=== PATIENT | male | born 1955 | race Caucasian/White ===

== ENCOUNTER 2024-03-03 13:07 | Emergency (ER) | payer OTHER ==
[~2024-03-03] VITALS: Ht 182.9 cm; Wt 81.6 kg
[2024-03-03 13:42] VITALS: BP 130/70; PULSE 46; PULSE 67; RESP 20; TEMP 97.9; O2SAT 98
[2024-03-03 13:47] VITALS: BP 140/72; PULSE 70; RESP 20; TEMP 98
[2024-03-03 14:00] VITALS: O2SAT 98
== END 2024-03-03 14:41 | disposition home or self-care (01) ==
LOC: MED 13:07
DX: R21 Rash and other nonspecific skin eruption (principal); R03.0 Elevated blood-pressure reading, without diagnosis of hypertension; E11.22 Type 2 diabetes mellitus with diabetic chronic kidney disease; N18.6 End stage renal disease; Z99.2 Dependence on renal dialysis; Z85.118 Personal history of other malignant neoplasm of bronchus and lung; Z85.528 Personal history of other malignant neoplasm of kidney
CPT/HCPCS: 99283

== ENCOUNTER 2024-03-19 17:33 | Emergency (ER) | payer MEDICARE, OTHER ==
[~2024-03-19] VITALS: Ht 175.3 cm; Wt 77.1 kg
--- NOTE | 2024-03-19 17:34 | NUR ---
BIBA BLS TO ER BED 12
[2024-03-19 17:35] VITALS: BP 135/77; PULSE 56; RESP 18; TEMP 98.1; O2SAT 92
--- NOTE | 2024-03-19 18:16 | NUR ---
PATIENT BIBA BLS FOR HD . PT STATES HE IS COVID + . DENIES N/V/D; SKIN IS PINK/WARM/DRY; AAOX4 ABLE TO AMB WITH ASSIST; LUNGS WHEEZE UPPER LOBES BL; HR EVEN AND REGULAR; PT DENIES ANY FEVER, CP, SOB, AT THIS TIME; PATIENT STATES PAIN OF 0/10 AT THIS TIME; VSS; PATIENT POSITIONED FOR COMFORT; HOB ELEVATED; BEDRAILS UP X2; BED DOWN. ER MD MADE AWARE OF PT STATUS.
[2024-03-19 18:53] LABS: FLU A ANTIGEN negative (NEGATIVE); FLU B ANTIGEN negative (NEGATIVE)
--- NOTE | 2024-03-19 19:00 | NUR ---
PT REFUSING TO HAVE IV PLACED, REFUSING EKG, YELLING HE "WANTS TO HAVE HIS DAMN DIALYSIS AND THATS IT". NOTIFIED
[2024-03-19 19:26] VITALS: O2SAT 97
--- NOTE | 2024-03-19 19:26 | NUR ---
RECEIVED REPORT FROM ALEYDA CORONA. CONTINUE PLAN OFC ARE AT THIS TIME.
--- NOTE | 2024-03-19 19:26 | NUR ---
Pt report given to LUIS GARCIA. Transfer of care at this time.
--- NOTE | 2024-03-19 19:26 | NUR ---
68YO M BIB SELF C.O MISSED DIALYSIS. PER PT FACILITY BILLAIR SANTILLAN, PT MISSED DIALYSIS SUNDAY AND TODAY DUE TO DX OF COVID-19. PT COVID-19 POSITIVE ACCORDING TO [facility] TEST WELL. VSS ON BEDSIDE MONITOR. DENIES ANY OTHER S.S AND DENIES PAIN AT THS TIME. DENIES CP OR SOB. CALL LIGHT WITHIN REACH. SAFETY MEASURES IN PLACE. ALLERGIES: NSAIDS PMHX: HF, RF, A-FIB
--- NOTE | 2024-03-19 19:27 | NUR ---
PT REFUSES LABS
[2024-03-19 19:46] LABS: BASOPHILS # (AUTO) 0.1 K/uL (0.00-0.22); BASOPHILS % (AUTO) 1.1 % (0.0-2.0); EOSINOPHILS # (AUTO) 0.4 K/uL (0-0.4); EOSINOPHILS % (AUTO) 5.6 % (0.0-4.0); HEMATOCRIT 36.5 % (36-52); HEMOGLOBIN 11.8 g/dL (12.0-18.0); LYMPHOCYTES # (AUTO) 0.6 K/uL (2.0-11.5); LYMPHOCYTES % (AUTO) 9.5 % (20.5-51.1); MEAN CORPUSCULAR HEMOGLOBIN 31 pg (27-31); MEAN CORPUSCULAR HGB CONC 32 g/dL (33-37); MEAN CORPUSCULAR VOLUME 95.4 fL (80-94); MONOCYTES # (AUTO) 0.7 K/uL (0.8-1.0); MONOCYTES % (AUTO) 11.3 % (1.7-9.3); NEUTROPHILS # (AUTO) 4.7 K/uL (1.8-7.7); NEUTROPHILS % (AUTO) 72.5 % (42.2-75.2); PLATELET COUNT (AUTO) 255 K/uL (140-450); RED BLOOD CELL COUNT(AUTO) 3.82 MIL/uL (4.20-6.10); RED CELL DISTRIBUTION WIDTH 15.6 % (11.6-13.7); WHITE BLOOD COUNT (AUTO) 6.5 K/uL (4.8-10.8)
[2024-03-19 19:58] LABS: ANION GAP 21.6 (8-16); CARBON DIOXIDE 20.3 mmol/L (21-32); POTASSIUM 4.9 mmol/L (3.5-5.1)
[2024-03-19 19:59] LABS: CREATININE 9.9 mg/dL (0.6-1.3)
[2024-03-19 20:00] LABS: PARTIAL THROMBOPLASTIN TIME 47.2 secs (22-35.6); PROTHROMBIN TIME 38.2 secs (10.8-13.4)
[2024-03-19 20:02] LABS: INR 3.93 (0.8-1.2)
[2024-03-19 20:06] LABS: ALANINE AMINOTRANSFERASE 28 U/L (12-78); ALBUMIN 2.7 g/dL (3.4-5.0); ALKALINE PHOSPHATASE 265 U/L (50-136); ASPARTATE AMINOTRANSFERASE 33 U/L (15-37); BILIRUBIN,DIRECT 0.2 mg/dL (0.0-0.3); TOTAL BILIRUBIN 0.5 mg/dL (0.0-1.0); TOTAL PROTEIN, SERUM 7.6 g/dL (6.4-8.2)
--- NOTE | 2024-03-19 20:16 | NUR ---
DR. NORIEGA STATES OK WITH PT DC BACK TO [facility]. [facility] CONTACTED AND STATES OK TO SEND PATIENT BACK WHEN READY. PT DENIES PAIN, SOB, OR CP AT THIS TIME. CALL LIGHT WITHIN REACH. SAFETY MEASURES IN PLACE.
--- NOTE | 2024-03-19 20:44 | NUR ---
ARRANGING TRANSPORT FOR PATIENT BACK TO [facility]. PREDATOR CONTROL TRAPPER AWARE AND ARRANGING TRANSPORT.
--- NOTE | 2024-03-19 21:08 | NUR ---
PER DR. NORIEGA, PT WILL BE TRANSPORTED TO [place] FOR DIALYSIS. TRANSPORT TO BE ARRANGED BY CATEGORY DIRECTOR. PT CONTINUES TO HAVE NO S/S PAIN OR DISTRESS. VSS ON BEDSDIE MONITOR. CALL LIGHT WITHIN REACH. SAFETY MEASURES IN PLACE.
--- NOTE | 2024-03-19 23:51 | NUR ---
sandwich, jello, and apple sauce provided to patient per pt request.
--- NOTE | 2024-03-20 00:51 | NUR ---
REPORT GIVEN TO ALEYDA CRAWFORD AT [facility] FOR PATIENT TRANSFER. PT TO BE TRANSFERRED TO ROOM [address] Christa PATINO. ETA FOR PICKUP [id number].
--- NOTE | 2024-03-20 01:02 | NUR ---
PT REFUSES IV ACCESS. EDUCATED PT ON IMPORTANCE OF HAVING IV ACCESS. DR. NORIEGA AWARE AND IS OK WITH PT NOT HAVING IV ACCESS. ALEYDA CRAWFORD AT [facility] CONTACTED AND NOTIFIED THAT PATIENT REFUSES IV ACCESS.
--- NOTE | 2024-03-20 02:01 | NUR ---
tammi care provided to patient. new diaper applied.
--- NOTE | 2024-03-20 04:32 | NUR ---
[facility] TRANSPORT ARRIVED IN PREMISE
[2024-03-20 04:33] VITALS: BP 131/71; PULSE 87; RESP 18; TEMP 98.2; O2SAT 99
--- NOTE | 2024-03-20 04:33 | NUR ---
Patient to be transferred to [facility]. Is being transferred due to HIGHER LEVEL OF CARE. Receiving facility has accepting physician and available space. ER physician has signed transfer form. Patient or responsible constitution party has agreed to transfer and signed form. Patient belongings inventoried and will be sent with patient. Copy of nursing notes, lab reports, EKG, Physicians Orders and X-rays to be sent with patient. Report called to ALEYDA CRAWFORD at receiving facility. [facility] ambulance service has been called for transfer. ETA is 30 MIN.
--- NOTE | 2024-03-20 04:44 | NUR ---
PT TAKEN BY [facility]SPORT TO [facility]
== END 2024-03-20 04:44 | disposition short-term general hospital (02) ==
LOC: MED 17:33
DX: I13.2 Hypertensive heart and chronic kidney disease with heart failure and with stage 5 chronic kidney disease, or end stage renal disease (principal); E11.22 Type 2 diabetes mellitus with diabetic chronic kidney disease; N18.6 End stage renal disease; I50.9 Heart failure, unspecified; Z99.2 Dependence on renal dialysis; U07.1 COVID-19; E78.5 Hyperlipidemia, unspecified
CPT/HCPCS: 36415; 71045; 80048; 80076; 83880; 84484; 85025; 85610; 85730; 93005; 99285